=== PATIENT | female | born 2000 | race Native Hawaiian/Other Pacific Islander ===

== ENCOUNTER 2019-02-25 23:42 | Emergency (ER) | payer OTHER ==
[~2019-02-25] VITALS: Ht 160 cm; Wt 79.4 kg
[2019-02-26 00:45] VITALS: BP 118/74; TEMP 98.1
== END 2019-02-26 00:45 | disposition home or self-care (01) ==
LOC: ED 23:42
DX: S00.461A Insect bite (nonvenomous) of right ear, initial encounter (principal); H60.11 Cellulitis of right external ear
CPT/HCPCS: 99281